=== PATIENT | male | born 1950 | race African-American/Black ===

== ENCOUNTER 2022-09-06 21:54 | Emergency (ER) | payer OTHER, MEDICAID ==
[~2022-09-06] VITALS: Ht 170.2 cm; Wt 79.6 kg
[2022-09-06] MEDS ORDERED: cloNIDine HCL 0.1 MG TAB PO ONE (22:30)
[2022-09-06 23:16] LABS: Basophils # (auto) 0.3 10 ^3/uL (0-0.2); Basophils % (auto) 2.6 % (0.0-2.0); Eosinophils # (auto) 0.2 10 ^3/uL (0-0.8); Eosinophils % (auto) 1.4 % (0.0-7.0); Hematocrit 50.7 % (41.0-53.0); Hemoglobin 16.6 g/dL (13.5-17.5); Lymphocytes # (auto) 1.2 10 ^3/uL (0.4-5.4); Lymphocytes % (auto) 9.5 % (10.0-50.0); Mean Corpuscular Hemoglobin 32.2 pg (28.0-32.0); Mean Corpuscular Hgb Conc. 32.8 g/dL (32.0-36.0); Mean Corpuscular Volume 98.1 fL (80.0-100.0); Monocytes # (auto) 0.6 10 ^3/uL (0-1.3); Monocytes % (auto) 4.6 % (0.0-12.0); Neutrophils # (auto) 10.6 10 ^3/uL (1.6-8.6); Neutrophils % (auto) 81.9 % (37.0-80.0); Nucleated Red Blood Cells % 0.1 %; Red Blood Cells 5.17 10^6/uL (4.5-5.90); Red Cell Distribution Width 13.5 % (11.8-14.3); White Blood Cell 12.9 10^3/uL (4.4-10.8)
[2022-09-06 23:39] LABS: Alanine Aminotransferase 30 U/L (16-61); Albumin 4.2 g/dL (3.4-5.0); Anion Gap 7 (5-15); Aspartate Aminotransferase 16 U/L (15-37); BUN/Creatinine Ratio 12.8; Blood Alcohol < 3.0 mg/dL (0-5); Blood Urea Nitrogen 12 mg/dL (7-18); Calcium 9.3 mg/dL (8.5-10.1); Carbon Dioxide 29 mmol/L (21-32); Chloride 102 mmol/L (98-107); GFR African American 102 mL/min; GFR Non-African American 84 mL/min; Glucose 109 mg/dL (74-106); Magnesium 2.3 mg/dL (1.6-2.6); Potassium 3.6 mmol/L (3.5-5.1); Sodium 138 mmol/L (136-145)
[2022-09-06 23:42] LABS: Alkaline Phosphatase 98 U/L (45-117); Bilirubin, Total 0.8 mg/dL (0.2-1.0); Total Protein 8.6 g/dL (6.4-8.2)
[2022-09-07] LABS: Amphetamine Screen, Urine NEGATIVE (NEGATIVE); Barbiturate Scree,Urine NEGATIVE (NEGATIVE); Benzodiazephine Screen, Urine NEGATIVE (NEGATIVE); Cannabinoid Screen, Urine NEGATIVE (NEGATIVE); Cocaine Screen, Urine NEGATIVE (NEGATIVE); Opiate Scree,Urine NEGATIVE (NEGATIVE); Phencyclidine Screen, Urine NEGATIVE (NEGATIVE)
[2022-09-07 03:08] VITALS: BP 176/90
[2022-09-07] MEDS ORDERED: AMOX-277 PO (03:16)
[2022-09-07] MEDS ORDERED: LORA-622 PO (03:16)
== END 2022-09-07 03:31 | disposition home or self-care (01) ==
LOC: ER 21:54
DX: J32.9 Chronic sinusitis, unspecified (principal); G45.9 Transient cerebral ischemic attack, unspecified; I10 Essential (primary) hypertension; Z20.822 Contact with and (suspected) exposure to COVID-19; Z03.89 Encounter for observation for other suspected diseases and conditions ruled out
CPT/HCPCS: 36415; 70450; 80053; 80307; 80320; 82962; 83735; 83880; 84484; 85025; 87040; 87426; 87804; 93005

== ENCOUNTER 2025-04-11 13:47 | Inpatient (IN) | payer OTHER, MEDICAID ==
[~2025-04-11] VITALS: Ht 170.2 cm; Wt 89.7 kg
[~2025-04-11 13:47] MED LIST: AMOX875T4 PO; LORA-622 PO
--- NOTE | 2025-04-11 14:47 | ED.PDOC ---
General HPI Comments This is a 74 year old male presenting to the ED with chief complaint of urinary issues. Patient reports that he was seen at urgent care yesterday for inability to void, being prescribed Tamsulosin and Ciprofloxacin with mild relief noted with the Tamsulosin. Patient relays that he has not been using the antibiotics due to side effects listed. Patient states that he is continuing to have urgency, however, it is difficult for him to urinate on his own. Patient notes he started to experience right flank pain with associate suprapubic abdominal pain, constipation, and redness to his bilateral legs which is not normal. Denies fevers, chills, night sweats, nausea/vomiting Denies penile discharge Chief Complaint: Urinary Time Seen by MD: 14:43 Primary Care Provider: DR. HANCOCK Reviewed notes: Nurses Notes, Medications, Allergies Allergies: Coded Allergies: NO KNOWN ALLERGIES (Unverified , 06/11/12) Home Meds Active Scripts Tamsulosin Hcl (Flomax) 0.4 Mg Cap, 0.4 MG PO QPM for 30 Days, #30 CAP Prov:BAILEY LOPEZ RESIDENT 04/13/25 Finasteride (Finasteride) 5 Mg Tab, 5 MG PO DAILY for 30 Days, #30 TAB Prov:BAILEY LOPEZ RESIDENT 04/13/25 Loratadine (Claritin) 10 Mg Tab, 1 TAB PO DAILY for 10 Days, #10 TAB 2 Refills Prov:SANJIV AMIN DO 09/07/22 Amoxicillin & Pot Clavulanate (Amoxicillin/Potassium Cla) 875 Mg Tab, 875 MG PO BID for 10 Days, #20 TAB Prov:SANJIV AMIN DO 09/07/22 Information Source: Patient Mode of Arrival: Ambulatory Severity: Moderate Inability to void: Moderate Timing: Days Duration: Since onset Prehospital treatment: None Onset: Spontaneous Symptoms: Urgency, Inability to void Location: (R) Flank associated signs and symptoms: Abdominal Pain, Flank Pain, Urgency, Inability to Void, Rash Past Medical History PAST MEDICAL HISTORY: HTN Surgical History: Denies all surgeries Family History Family History: Unknown Social History Smoker: Non-Smoker Alcohol: Occasionally Drugs: Denies Drug Use Lives In: Home Constitutional: denies: chills, diaphoresis, fatigue, fever, malaise, sweats, weakness, others EENTM: denies: blurred vision, double vision, ear bleeding, ear discharge, ear drainage, ear pain, ear ringing, eye pain, eye redness, hearing loss, mouth trin[place] n, mouth swelling, nasal discharge, nose bleeding, nose congestion, nose pain, photophobia, tearing, throat pain, throat swelling, voice changes, others Respiratory: denies: cough, hemoptysis, orthopnea, SOB at rest, shortness of breath, SOB with excertion, stridor, wheezing, others Cardiovascular: denies: chest pain, dizzy spells, diaphoresis, Dyspnea on exertion, edema, irregular heart beat, left arm pain, lightheadedness, palpitations, PND, syncope, others Gastrointestinal: reports: abdominal pain, constipated; denies: abdomen distended, blood streaked bowels, diarrhea, dysphagia, difficulty swallowing, hematemesis, melena, nausea, poor appetite, poor fluid intake, rectal bleeding, rectal pain, vomiting, others Genitourinary: reports: flank pain, others (Inability to void); denies: burning, dysuria, frequency, hematuria, incontinence, penile discharge, penile sore, pain, testicle pain, testicle swelling, urgency Neurological: denies: dizziness, fainting, headache, left sided numbness, left sided weakness, numbness, paresthesia, pre-existing deficit, right sided numbn ess, right sided weakness, seizure, speech problems, tingling, tremors, weakness, others Musculoskeletal: denies: back pain, gout, joint pain, joint swelling, muscle pain, muscle stiffness, neck pain, others Integumetry: reports: change in color (Bilateral leg redness); denies: bruises, change in hair/nails, dryness, laceration, lesions, lumps, rash, wounds, others Allergic/Immunocompromised: denies: Difficulty Healing, Frequent Infections, Hives, Itching, others Hematologic/Lymphatic: denies: anemia, blood clots, easy bleeding, easy bruising, swollen glands, others Endocrine: denies: excessive hunger, excessive sweating, excessive thirst, excessive urination, flushing, intolerance to cold, intolerance to heat, unexplained weight gain, unexplained weight loss, others Psychiatric: denies: anxiety, bipolar disorder, depression, hopeless, panic disorder, schizophrenia, sleepless, suicidal, others All Other Systems: Reviewed and Negative Physical Exam General Appearance: No Apparent Distress, Normal HEENT: Normal ENT Inspection, Pharynx Normal, TMs Normal Neck: Full Range of Motion, Non-Tender, Normal, Normal Inspection Respiratory: Chest Non-Tender, Lungs Clear, No Accessory Muscle Use, No Respiratory Distress, Normal Breath Sounds Cardiovascular: No Edema, No JVD, No Murmur, No Gallop, Normal Peripheral Pulses, Regular Rate/Rhythm Breast Exam: Deferred Gastrointestinal: No Organomegaly, Normal Bowel Sounds, Tenderness Genitalia: Deferred Pelvic: Deferred Rectal: Deferred Extremities: No calf tenderness, Normal capillary refill, Normal inspection, Normal range of motion, Non-tender, No pedal edema Musculoskeletal : Apperance: Normal Neurologic: Alert, studio sales associate II-XII nml as Tested, No Motor Deficits, Normal Affect, Normal Mood, No Sensory Deficits Cerebellar Function: Normal Reflexes: Normal Skin: Dry, Normal Color, Warm Lymphatic: No Adenopathy Was a procedure done? Was a procedure done?: No Differential Diagnosis Kidney stone (Female): Other, N/A Urinary Problem (Male): Bladder Obstruction, Epididymitis, Prostatitis, Renal Failure, Urinary Retention, Urolithiasis, UTI X-Ray, Labs, Meds, VS Vital Signs Date Time Temp Pulse Resp B/P (MAP) Pulse Ox O2 Delivery O2 Flow Rate FiO2 04/11/25 13:49 98.7 114 15 164/88 97 98.7 Lab Test 04/11/25 17:50 04/11/25 16:02 04/11/25 14:56 04/11/25 14:54 Range/Units Troponin I High Sensitivity 31 29 28 </=54 ng/L Sodium Level 135 L 135 L 136-145 mmol/L Potassium Level 4.0 4.1 3.5-5.1 mmol/L Chloride Level 99 99 98-107 mmol/L Carbon Dioxide Level 25 23 20-31 mmol/L Anion Gap 11 13 5-15 Blood Urea Nitrogen 30 H 31 H 9-23 mg/dL Creatinine 4.41 H 5.24 H 0.700-1.30 mg/dL Glomerular Filtration Rate Calc 13 11 >90 mL/min BUN/Creatinine Ratio 6.8 L 5.9 L 10.0-20.0 Serum Glucose 107 H 121 H 74-106 mg/dL Lactic Acid Level 1.6 0.4-2.0 mmol/L Calcium Level 9.6 9.4 8.7-10.4 mg/dL Total Bilirubin 1.3 H 0.2-1.0 mg/dL Aspartate Amino Transferase (AST) 37 13-40 U/L Alanine Aminotransferase (ALT) 22 7-40 U/L Alkaline Phosphatase 80 46-116 U/L C-Reactive Protein High Sensitivity 7.95 H <1.0 mg/dL Total Protein 8.7 H 5.7-8.2 g/dL Albumin 4.9 H 3.2-4.8 g/dL Urine Color Yellow Yellow Urine Clarity Clear Clear Urine pH 5.5 5.0-9.0 Urine Specific [place] 1.015 1.001-1.035 Urine Protein Negative Negative Urine Ketones Negative Negative Urine Blood 3+ H Negative /uL Urine Nitrite Negative Negative Urine Bilirubin Negative Negative Urine Urobilinogen Normal Negative mg/dL Urine Leukocyte Esterase Negative Negative /uL Urine RBC 63 0 - 3 /hpf Urine Microscopic WBC 39 H 0-3 /HPF Urine Squamous Epithelial Cells Few <5 /hpf Urine Bacteria None seen None Seen /hpf Urine Glucose Normal Normal mg/dL White Blood Count 22.4 H 4.4-10.8 10^3/uL Red Blood Count 4.69 4.5-5.90 10^6/uL Hemoglobin 15.7 13.5-17.5 g/dL Hematocrit 46.1 41.0-53.0 % Mean Corpuscular Volume 98.3 80.0-100.0 fL Mean Corpuscular Hemoglobin 33.4 H 28.0-32.0 pg Mean Corpuscular Hemoglobin Concent 34.0 32.0-36.0 g/dL Red Cell Distribution Width 13.1 11.8-14.3 % Platelet Count 242 140-450 10^3/uL Mean Platelet Volume 7.5 6.9-10.8 fL Neutrophils (%) (Auto) 89.5 H 37.0-80.0 % Lymphocytes (%) (Auto) 2.5 L 10.0-50.0 % Monocytes (%) (Auto) 7.5 0.0-12.0 % Eosinophils (%) (Auto) 0.2 0.0-7.0 % Basophils (%) (Auto) 0.3 0.0-2.0 % Neutrophils # (Auto) 20.1 H 1.6-8.6 10 ^3/uL Lymphocytes # (Auto) 0.6 0.4-5.4 10 ^3/uL Monocytes # (Auto) 1.7 H 0-1.3 10 ^3/uL Eosinophils # (Auto) 0 0-0.8 10 ^3/uL Basophils # (Auto) 0.1 0-0.2 10 ^3/uL Nucleated Red Blood Cells 0.1 % Erythrocyte Sedimentation Rate 18 0-20 mm/hr Microbiology Date/Time Source Procedure Growth Status 04/11/25 16:02 Blood Blood Culture - Final NO GROWTH AFTER 5 DAYS OF INCUBATION. Complete 04/11/25 15:50 Blood Blood Culture - Final NO GROWTH AFTER 5 DAYS OF INCUBATION. Complete X-Ray, Labs, Meds, VS Comment This is a 74 year old male presenting to the ED with chief complaint of Difficulty urinating Patient arrives alert and oriented, ABC's intact, afebrile, vital signs stable, saturating well in room air Peripheral IV insertion+ labs were ordered. CBC was ordered to exclude anemia, blood loss, or infection. BMP was ordered to exclude electrolyte abnormalities, renal failure, dehydration, hyperglycemia Urinalysis was ordered to rule out UTI or hematuria. Diagnostic imaging ordered by me and results interpreted by radiology : CT Abd/Pel Time of 1ST Reevaluation: 15:00 Reevaluation 1ST: Unchanged Patient Education/Counseling: Diagnosis, Treatment Family Education/Counseling: No Family Present SEPSIS Sepsis Screen Date sepsis recognized/suspect: Apr 11, 2025 Time Sepsis recognized/suspect: 1351 Recent Procedure: No On Antibiotic Therapy: No Respiratory Rate >20: No Heart Rate >90: Yes Temp<36 C (96.8 F) or >38.3 C: No SBP <90 or MAP <65 mmHG: No New Acute Mental Status Change: No Is the patient on CPAP, BIPAP,: No Physician Orders Chst Ab Pel Wo Con-No Iv/Oral (04/11/25 15:37) Electrocardigram (04/11/25 15:56) Notify Md If Map <65 Or Bp<90 (04/11/25 15:58) If Map<65 Start Vasopressor (04/11/25 15:58) *Dr. Tila Layton -Da Lizbeth (04/11/25 17:46) Code Status (04/11/25 17:46) Oxygen Per Hour (04/11/25 17:46) Vital Signs Date Time Temp Pulse Resp B/P (MAP) Pulse Ox O2 Delivery O2 Flow Rate FiO2 04/11/25 13:49 98.7 114 15 164/88 97 98.7 Laboratory Tests Test 04/11/25 14:54 04/11/25 16:02 White Blood Count 22.4 10^3/uL (4.4-10.8) H Lactic Acid Level 1.6 mmol/L (0.4-2.0) Departure 1 Departure Time of Disposition: 15:56 Impression: Primary Impression: Urinary retention Additional Impressions: Stage 3 acute kidney injury Abdominal pain Qualified Codes: R10.84 - Generalized abdominal pain UTI (urinary tract infection) Qualified Codes: N30.01 - Acute cystitis with hematuria Disposition: ADMITTED INPATIENT Condition: Serious e-Prescriptions Tamsulosin Hcl (Flomax) 0.4 Mg Cap 0.4 MG PO QPM for 30 Days, #30 CAP Prov: BAILEY LOPEZ RESIDENT 04/13/25 Finasteride (Finasteride) 5 Mg Tab 5 MG PO DAILY for 30 Days, #30 TAB Prov: BAILEY LOPEZ RESIDENT 04/13/25 Critical Care Note Critical Care Time?: No Stability Stability form required: No Heart Score Heart Score: Heart Score Response (Comments) Value History N/A 0 EKG N/A 0 Age N/A 0 Risk Factors N/A 0 Troponin N/A 0 Total 0 I personally scribed for LISA DRAKE NP ([email or web address]) on 04/11/25 at 14:47. Electronically submitted by Candelario Velez ([email or web address]). I personally scribed for LISA DRAKE NP ([email or web address]) on 04/11/25 at 15:38. Electronically submitted by Candelario Velez ([email or web address]). LISA DRAKE NP Apr 11, 2025 14:47
[2025-04-11 15:09] LABS: Hematocrit 46.1 % (41.0-53.0); Hemoglobin 15.7 g/dL (13.5-17.5); Mean Corpuscular Hemoglobin 33.4 pg (28.0-32.0); Mean Corpuscular Volume 98.3 fL (80.0-100.0); Nucleated Red Blood Cells % 0.1 %
[2025-04-11 15:12] LABS: Chloride 99 mmol/L (98-107); Potassium 4.1 mmol/L (3.5-5.1)
[2025-04-11 15:13] LABS: Anion Gap 13 (5-15); Calcium 9.4 mg/dL (8.7-10.4); Carbon Dioxide 23 mmol/L (20-31)
[2025-04-11 15:14] LABS: Urine Protein, UAD Negative (Negative)
[2025-04-11 15:16] LABS: Sodium 135 mmol/L (136-145)
[2025-04-11 15:18] LABS: BUN/Creatinine Ratio 5.9 (10.0-20.0)
[2025-04-11 15:25] LABS: Blood Urea Nitrogen 31 mg/dL (9-23); Glucose 121 mg/dL (74-106)
[2025-04-11 16:38] LABS: Alanine Aminotransferase 22 U/L (7-40); Albumin 4.9 g/dL (3.2-4.8); Alkaline Phosphatase 80 U/L (46-116); Anion Gap 11 (5-15); BUN/Creatinine Ratio 6.8 (10.0-20.0); Blood Urea Nitrogen 30 mg/dL (9-23); Calcium 9.6 mg/dL (8.7-10.4); Carbon Dioxide 25 mmol/L (20-31); Chloride 99 mmol/L (98-107); Glucose 107 mg/dL (74-106); Potassium 4.0 mmol/L (3.5-5.1); Sodium 135 mmol/L (136-145); Total Protein 8.7 g/dL (5.7-8.2)
--- NOTE | 2025-04-11 16:38 | DVH ---
Procedure: CT CHST AB PEL WO CON-NO IV/ORAL Study Date and Requested Time : 04/11/2025 03:44 PM History: Ab pain Comparison: None Dose: CTDI: 14.14 mGy DLP: 4.61 mGycm Technique: Multiplanar images obtained through the abdomen and pelvis Multiplanar images obtained thr ough the abdomen and pelvis Findings: Chest: The thyroid gland is unremarkable. Heart size is within normal limits. Trace pericardial effusion. No evidence of aortic aneurysm. The pulmonary trunk is normal in size. No significant mediastinal lymphadenopathy. No pneumothorax, pleural effusion or focal airspace consolidation. Soft tissues are unremarkable. No evidence of acute osseous abnormalities. Abdomen and pelvis: Liver, spleen, gallbladder, pancreas unremarkable. Mild hypoplasia of the adrenal glands with no foca l nodules. Odac-tz-peiwfblu bilateral perinephric and periureteral fat stranding with mild Bilateral Hydronephro sis. No obstructing calculus is noted. Punctate nonobstructing left renal calculus. Focus of calcifi cation within the right hemipelvis abutting the prostate which appears to represent prostatic calcifi cation/phleboliths. Urinary bladder is decompressed with Gallardo catheter in place.. Air within the uri nary bladder which is most likely iatrogenic. There is mild fat stranding adjacent to the urinary mj dder. Prostate is significantly enlarged measuring 7 by 7 by 7.9 cm. Mild gastric wall thickening. Mild wall Thickening of proximal small bowel loops. The remainder of th e small bowel loops unremarkable. Appendix is not definitely visualized. Without visualization of the appendix, can not exclude acute appendicitis. There is irregularly shaped fluid density within the c ecum which may represent Liquid stool. Small to moderate Amount of fecal material within the colon. M ild rectal wall thickening which may be due to inadequate distention. No evidence of intraperitoneal free air or free fluid. Noevidence of aortic aneurysm. [id number] atherosclerotic calcification of the aorta. No significant lymphadenopathy. Small right with small to moderate left-sided fat containing inguinal hernias. Small fat containing umbilical hernia with mild fat stranding within the hernia which may represent m ild strangulation. Soft tissues otherwise unremarkable. No evidence of acute osseous abnormalities. Impression: Significantly enlarged prostate. Recommend correlation with PSA. Urinary bladder is decompressed gallardo catheter in place. Fat stranding adjacent to the urinary bladd er. Recommend correlation with urinalysis for possible cystitis. Mild bilateral Hydronephrosis with Hcch-wy-rgefjcoz bilateral perinephric and periureteral fat strand ing. No obstructing calculus is noted. Correlate for possible infectious process. Mild wall thickening of the stomach and proximal small bowel which may be due to inadequate distentio n with mild gastritis not excluded. Noevidence of acute intrathoracic abnormalities. Additional findings as above.
[2025-04-11 16:39] LABS: Bilirubin, Total 1.3 mg/dL (0.2-1.0)
[2025-04-11] MEDS ORDERED: ONDANSETRON HCL 4 MG/2 ML VIAL IV PRN (18:00)
[2025-04-11] MEDS ORDERED: HYDROcodone-ACET 5/325MG TAB PO PRN (18:00)
[2025-04-11] MEDS ORDERED: ACETAMINOPHEN 325 MG TAB PO PRN (18:00)
[2025-04-11] MEDS ORDERED: hydrALAZINE HCL 20 MG/ML VL IV PRN (18:00)
[2025-04-11] MEDS: SODIUM CHLORIDE 0.9% 1,000 ML IV SCH (18:00)
[2025-04-11] MEDS: TAMSULOSIN HYDROCHLORIDE 0.4 MG CAP PO ONE (18:06)
[2025-04-11] MEDS: cefTRIAXone 2GM/50ML D5W 50 ML IV ONE (18:12)
--- NOTE | 2025-04-11 18:27 | DVHHP2 ---
History of Present Illness Reason for Visit: Acute renal failure History of Present Illness The patient is a 74-year-old male with past medical history of hypertension presented to [facility] ED with complaint of difficulty urinating associated with urinary urgency, right flank pain, suprapubic abdominal pain, constipation, and redness of his bilateral legs. Patient reports that he was seen at urgent care yesterday for inability to void and was prescribed Tamsulosin and Ciprofloxacin with mild relief. Patient states that he has not been using the antibiotics due to side effects listed. Patient was seen and evaluated in the ED, laboratory data shows elevated WBC 22.4, platelets 242, sodium 135, potassium 4.0, BUN 30, creatinine 4.41, GFR 13, glucose 107, calcium 9.6, troponin 28, total bilirubin 1.3, C-reactive protein 7.95, protein 8.7, albumin 4.9, ESR 18, blood pressure 164/88, heart rate 1 one four, temperature 98.7 F, O2 saturation 97% on room air. Chest/abdomen/pelvis CT revealing enlarged prostate, urinary bladder is decompressed Gallardo catheter in place, fat stranding adjacent to the urinary bladder, mild bilateral hydronephrosis with mild to moderate bilateral perinephric and periureteral fat stranding, no obstructing calculus is noted. Patient was started on IV antibiotic regimen Zosyn, please see medication orders section in the computer. On my assessment, patient denied chest pain, no headache, no dizziness, no diaphoresis, no short ness of breaths, no diarrhea, no nausea, no vomiting, no fever, no chills. Patient was admitted for further evaluation and medical management. Past Medical History Hypertension, BPH Past Surgical History Denies all surgeries Family History Reviewed, noncontributory to the management of this case. Past Social History The patient lives at home, denies smoking, alcohol or illicit drugs abuse. Review of Systems Constitutional: Yes: Weakness; No: Fever, Chills, Sweats, Malaise, Other Eyes: No: Pain, Vision change, Conjunctivae inflammation, Eyelid inflammation, Other, Redness ENT: No: Ear pain, Ear discharge, Nose pain, Nose discharge, Nose congestion, Mouth pain, Mouth swelling, Throat pain, Throat swelling, Other Respiratory: No: Cough, Dry, Shortness of breath, SOB with excertion, Wheezing, Hemoptysis, Pleuritic Pain, Sputum, Wheezing, Other Cardiovascular: No: Chest Pain, Palpitations, Orthopnea, Paroxysmal Noc. Dyspnea, Edema, Lt Headedness, Other Gastrointestinal: Abdominal Pain, Constipation; No: Nausea, Vomiting, Diarrhea, Melena, Hematochezia, Other Genitourinary: No Dysuria, No Frequency, No Incontinence, No Hematuria, No Retention; Other (Inability to void) Musculoskeletal: No: other, neck pain, shoulder pain, arm pain, back pain, hand pain, leg pain, foot pain Skin: No: Rash, Lesions, Jaundice, Bruising, Other Neurological: No: Weakness, Numbness, Incoordination, Change in speech, C onfusion, Seizures, Other Allergies: Coded Allergies: NO KNOWN ALLERGIES (Unverified , 06/11/12) Medications Current Medications Medications Dose Ordered Sig/Chelo Route Start Time Stop Time Status Last Admin Dose Admin Amlodipine Besylate 5 mg DAILY PO 04/12/25 10:00 Hydralazine HCl 10 mg Q6HP PRN IV 04/11/25 18:00 Piperacillin Sod/ Tazobactam Sod 100 ml @ 25 mls/hr Q8HR IV 04/11/25 22:00 Metoprolol Tartrate 25 mg BID PO 04/11/25 22:00 Tamsulosin HCl 0.4 mg QPM PO 04/12/25 18:00 Sodium Chloride 1,000 ml @ 60 mls/hr [id number] IV 04/11/25 18:00 Acetaminophen/ Hydrocodone Bitart 1 tab Q4HP PRN PO 04/11/25 18:00 Ondansetron HCl 4 mg Q4HP PRN IV 04/11/25 18:00 Docusate Sodium 100 mg BIDPRN PRN PO 04/11/25 18:00 Acetaminophen 650 mg Q6HP PRN PO 04/11/25 18:00 Exam Vital Signs Vital Signs Date Time Temp Pulse Resp B/P (MAP) Pulse Ox O2 Delivery O2 Flow Rate FiO2 04/11/25 13:49 98.7 114 15 164/88 97 98.7 General Appearance: Alert, Oriented X3, Cooperative, No acute distress HEENT: Atraumatic, PERRLA, EOMI, Mucous membr. moist/pink Respiratory: Normal air movement Cardiovascular: Regular rate, Normal S1, Normal S2, No murmurs Abdominal: Normal bowel sounds, Soft, No tenderness, No masses, Other (Reports tenderness) Extremities: No clubbing, No cyanosis, No edema, Normal pulses, No tenderness/swelling Skin: No breakdown, No significant lesion Neuro: Normal speech, Normal tone, Sensation intact, Cranial nerves 3-12 NL, Reflexes 2+, Other (Generalized weakness) Psych/Mental Status: Mental status NL, Mood NL Labs/Xrays Labs Test 04/11/25 17:50 04/11/25 16:02 04/11/25 14:56 04/11/25 14:54 Range/Units Sodium Level 135 L 136-145 mmol/L Potassium Level 4.0 3.5-5.1 mmol/L Chloride Level 99 98-107 mmol/L Carbon Dioxide Level 25 20-31 mmol/L Anion Gap 11 5-15 Blood Urea Nitrogen 30 H 9-23 mg/dL Creatinine 4.41 H 0.700-1.30 mg/dL Glomerular Filtration Rate Calc 13 >90 mL/min BUN/Creatinine Ratio 6.8 L 10.0-20.0 Serum Glucose 107 H 74-106 mg/dL Lactic Acid Level 1.6 0.4-2.0 mmol/L Calcium Level 9.6 8.7-10.4 mg/dL Total Bilirubin 1.3 H 0.2-1.0 mg/dL Aspartate Amino Transferase (AST) 37 13-40 U/L Alanine Aminotransferase (ALT) 22 7-40 U/L Alkaline Phosphatase 80 46-116 U/L C-Reactive Protein High Sensitivity 7.95 H <1.0 mg/dL Total Protein 8.7 H 5.7-8.2 g/dL Albumin 4.9 H 3.2-4.8 g/dL Urine Color Yellow Yellow Urine Clarity Clear Clear Urine pH 5.5 5.0-9.0 Urine Specific [place] 1.015 1.001-1.035 Urine Protein Negative Negative Urine Ketones Negative Negative Urine Blood 3+ H Negative /uL Urine Nitrite Negative Negative Urine Bilirubin Negative Negative Urine Urobilinogen Normal Negative mg/dL Urine Leukocyte Esterase Negative Negative /uL Urine RBC 63 0 - 3 /hpf Urine Microscopic WBC 39 H 0-3 /HPF Urine Squamous Epithelial Cells Few <5 /hpf Urine Bacteria None seen None Seen /hpf Urine Glucose Normal Normal mg/dL White Blood Count 22.4 H 4.4-10.8 10^3/uL Red Blood Count 4.69 4.5-5.90 10^6/uL Hemoglobin 15.7 13.5-17.5 g/dL Hematocrit 46.1 41.0-53.0 % Mean Corpuscular Volume 98.3 80.0-100.0 fL Mean Corpuscular Hemoglobin 33.4 H 28.0-32.0 pg Mean Corpuscular Hemoglobin Concent 34.0 32.0-36.0 g/dL Red Cell Distribution Width 13.1 11.8-14.3 % Platelet Count 242 140-450 10^3/uL Mean Platelet Volume 7.5 6.9-10.8 fL Neutrophils (%) (Auto) 89.5 H 37.0-80.0 % Lymphocytes (%) (Auto) 2.5 L 10.0-50.0 % Monocytes (%) (Auto) 7.5 0.0-12.0 % Eosinophils (%) (Auto) 0.2 0.0-7.0 % Basophils (%) (Auto) 0.3 0.0-2.0 % Neutrophils # (Auto) 20.1 H 1.6-8.6 10 ^3/uL Lymphocytes # (Auto) 0.6 0.4-5.4 10 ^3/uL Monocytes # (Auto) 1.7 H 0-1.3 10 ^3/uL Eosinophils # (Auto) 0 0-0.8 10 ^3/uL Basophils # (Auto) 0.1 0-0.2 10 ^3/uL Nucleated Red Blood Cells 0.1 % Erythrocyte Sedimentation Rate 18 0-20 mm/hr PATIENT: AVELINO CHRISTIAN ACCT: [id number] UNIT: [id number] : 1950 LOC: ER ROOM / BED: / AGE / SEX: 74 / M ADM STATUS: REG ER SERVICE 1537 ORDERING PHYSICIAN: LISA DRAKE NP PROCEDURE(s): CTCAP - CHST AB PEL WO CON-NO IV/ORAL REASON: Ab pain ORDER NUMBER(s): [id number], ACCESSION NUMBER(s): [id number] Procedure: CT CHST AB PEL WO CON-NO IV/ORAL Study Date and Requested Time: 04/11/2025 03:44 PM History: Ab pain Comparison: None Dose: CTDI: 14.14 mGy DLP: 4.61 mGycm Technique: Multiplanar images obtained through the abdomen and pelvis Multiplanar images obtained through the abdomen and pelvis Findings: Chest: The thyroid gland is unremarkable. Heart size is within normal limits. Trace pericardial effusion. No evidence of aortic aneurysm. The pulmonary trunk is normal in size. No significant mediastinal lymphadenopathy. No pneumothorax, pleural effusion or focal airspace consolidation. Soft tissues are unremarkable. No evidence of acute osseous abnormalities. Abdomen and pelvis: Liver, spleen, gallbladder, pancreas unremarkable. Mild hypoplasia of the adrenal glands with no focal nodules. Icwt-ty-fpawzwfj bilateral perinephric and periureteral fat stranding with mild Bilateral Hydronephrosis. No obstructing calculus is noted. Punctate nonobstructing left renal calculus. Focus of calcification within the right hemipelvis abutting the prostate which appears to represent prostatic calcification/phleboliths. Urinary bladder is decompressed with Gallardo catheter in place.. Air within the urinary bladder which is most likely iatrogenic. There is mild fat stranding adjacent to the urinary bladder. Prostate is significantly enlarged measuring 7 by 7 by 7.9 cm. Mild gastric wall thickening. Mild wall Thickening of proximal small bowel loo ps. The remainder of the small bowel loops unremarkable. Appendix is not definitely visualized. Without visualization of the appendix, can not exclude acute appendicitis. There is irregularly shaped fluid density within the cecum which may represent Liquid stool. Small to moderate Amount of fecal material within the colon. Mild rectal wall thickening which may be due to inadequate distention. No evidence of intraperitoneal free air or free fluid. Noevidence of aortic aneurysm. Wvha-px-xyjiwnla atherosclerotic calcification of the aorta. No significant lymphadenopathy. Small right with small to moderate left-sided fat containing inguinal hernias. Small fat containing umbilical hernia with mild fat stranding within the hernia which may represent mild strangulation. Soft tissues otherwise unremarkable. No evidence of acute osseous abnormalities. Impression: Significantly enlarged prostate. Recommend correlation with PSA. Urinary bladder is decompressed gallardo catheter in place. Fat stranding adjacent to the urinary bladder. Recommend correlation with urinalysis for possible cystitis. Mild bilateral Hydronephrosis with [id number] bilateral perinephric and periureteral fat stranding. No obstructing calculus is noted. Correlate for possible infectious process. Mild wall thickening of the stomach and proximal small bowel which may be due to inadequate distention with mild gastritis not excluded. Noevidence of acute intrathoracic abnormalities. Additional findings as above. SEPSIS Sepsis Screen Date sepsis recognized/suspect: Apr 11, 2025 Time Sepsis recognized/suspect: 1351 Recent Procedure: No On Antibiotic Therapy: No Respiratory Rate >20: No Heart Rate >90: Yes Temp<36 C (96.8 F) or >38.3 C: No SBP <90 or MAP <65 mmHG: No New Acute Mental Status Change: No Is the patient on CPAP, BIPAP,: No Physician Orders Insert Gallardo Catheter QSHIFT (04/11/25 14:41) Chst Ab Pel Wo Con-No Iv/Oral (04/11/25 15:37) Blood Culture (04/11/25 15:46) Electrocardigram (04/11/25 15:56) Troponin-I Hs (04/11/25 18:56) Notify Md If Map <65 Or Bp<90 (04/11/25 15:58) If Map<65 Start Vasopressor (04/11/25 15:58) Amlodipine Tablet (Norvasc Tablet) (04/12/25 10:00) Hydralazine Injection (Apresoline Inject (04/11/25 18:00) Piperacillin-Tazob 3.375gm (Zosyn 3.375g (04/11/25 22:00) *Dr. Tila Layton -Da Lizbeth (04/11/25 17:46) Metoprolol Tartrate Tablet (Lopressor Ta (04/11/25 22:00) Allergies (04/11/25 17:46) Code Status (04/11/25 17:46) Sodium Chloride 0.9% (04/11/25 18:00) Oxygen Per Hour (04/11/25 17:46) Hydrocodone-Acet 5/325mg Tab ([place] 5/32 (04/11/25 18:00) Ondansetron Hcl (Zofran) (04/11/25 18:00) Docusate Sodium Capsule (Colace Capsule) (04/11/25 18:00) Complete Blood Count (04/12/25 04:00) Comprehensive Metabolic Panel (04/12/25 04:00) Cardiac Diet-2gna,Lofat,Lochol (04/11/25 Dinner) Condition: Serious (04/11/25 17:46) Acetaminophen Tablet (Tylenol Tablet) (04/11/25 18:00) Bedrest With Bathroom Privileg (04/11/25 17:46) Sequential Compression Device (04/11/25 ) Tamsulosin Hydrochloride (Flomax) (04/12/25 18:00) Vital Signs Date Time Temp Pulse Resp B/P (MAP) Pulse Ox O2 Delivery O2 Flow Rate FiO2 04/11/25 13:49 98.7 114 15 164/88 97 98.7 Laboratory Tests Test 04/11/25 14:54 04/11/25 16:02 White Blood Count 22.4 10^3/uL (4.4-10.8) H Lactic Acid Level 1.6 mmol/L (0.4-2.0) Medications Medications Dose Ordered Sig/Chelo Route Start Time Stop Time Status Last Admin Dose Admin Ceftriaxone Sodium/Dextrose 50 ml @ 50 mls/hr ONCE ONCE IV 04/11/25 16:00 04/11/25 16:59 DC 04/11/25 18:12 50 MLS/HR Tamsulosin HCl 0.4 mg ONCE ONCE PO 04/11/25 18:00 04/11/25 18:01 DC 04/11/25 18:06 0.4 MG Assessment/Plan Assessment/Plan Acute renal failure Urinary retention Hydronephrosis Stage 3 acute kidney injury Abdominal pain Leukocytosis, unspecified Generalized abdominal pain UTI (urinary tract infection) Acute cystitis with hematuria Generalized weakness BPH (benign prostatic hyperplasia) Systemic inflammatory response syndrome (SIRS) Plan 1. Admit to telemetry unit 2. Breathing treatment 3. Pain control management 4. IV antibiotic management 5. Management of fluids and electrolytes 6. Consultation for hospitalist/nephrology 7. Diagnostic test chest/abdomen/pelvis CT 8. DVT prophylaxis on SCDs 9. Repeat labs CBC, CMP in a.m. 10. Home medication reviewed and reconciled 11. Continue with current medical management 12. Treatment plan discussed with patient and RN. Patient verbalized understanding. Plan discussed with: Patient, Other (RN) My Orders Orders - JOSE ARMANDO ORTEGA DNP Procedure Category Date Status Time Amlodipine Tablet PHA 04/12/25 In Process (Norvasc Tablet) 10:00 Hydralazine Injection PHA 04/11/25 In Process (Apresoline Inject 18:00 Piperacillin-Tazob PHA 04/11/25 In Process 3.375gm (Zosyn 3.375g 22:00 *Dr. Tila Layton -Da CONS 04/11/25 Transmitted Libzeth 17:46 Metoprolol Tartrate PHA 04/11/25 In Process Tablet (Lopressor Ta 22:00 Allergies NICKY 04/11/25 In Process 17:46 Code Status CODE 04/11/25 Transmitted 17:46 Sodium Chloride 0.9% PHA 04/11/25 In Process 18:00 Oxygen Per Hour RT 04/11/25 Transmitted 17:46 Hydrocodone-Acet PHA 04/11/25 In Process 5/325mg Tab ([place] 18:00 Ondansetron Hcl PHA 04/11/25 In Process (Zofran) 18:00 Docusate Sodium PHA 04/11/25 In Process Capsule (Colace 18:00 Complete Blood Count LAB 04/12/25 Verified 04:00 Comprehensive LAB 04/12/25 Verified Metabolic Panel 04:00 Cardiac DIET 04/11/25 Transmitted Diet-2gna,Lofat,Lochol Dinner Condition: Serious NICKY 04/11/25 In Process 17:46 Acetaminophen Tablet PHA 04/11/25 In Process (Tylenol Tablet) 18:00 Bedrest With Bathroom NICKY 04/11/25 In Process Privileg 17:46 Sequential NICKY 04/11/25 In Process Compression Device Tamsulosin PHA 04/12/25 In Process Hydrochloride (Flomax) 18:00 Problem List: (1) Acute renal failure (2) Urinary retention (3) Abdominal pain (4) Stage 3 acute kidney injury (5) Generalized abdominal pain (6) Hydronephrosis (7) UTI (urinary tract infection) (8) Acute cystitis with hematuria (9) Generalized weakness (10) BPH (benign prostatic hyperplasia) (11) Leukocytosis, unspecified (12) Systemic inflammatory response syndrome (SIRS) Date of Service: Apr 11, 2025 Billing Provider: JOSE ARMANDO ORTEGA DNP Common Visit Codes: 46083-VYHVQCI INP/OBS CARE (HIGH) JOSE ARMANDO ORTEGA DNP Apr 11, 2025 18:27
[2025-04-11] MEDS ORDERED: MORPHINE SULFATE INJ 2 MG/ml SYRG IV PRN (18:30)
[2025-04-11] MEDS ORDERED: NITROGLYCERIN 0.4 MG SL TAB SL PRN (18:30)
[2025-04-11] MEDS ORDERED: VANCOMYCIN PER PHARMACY 0 MG IV SCH (21:15)
[2025-04-11 23:15] VITALS: BP 158/84; PULSE 74; PULSE 76; RESP 17; TEMP 97.9; O2SAT 95; O2SAT 98
[2025-04-12] VITALS (7 sets, daily range): BP systolic 130–147; BP diastolic 71–90; PULSE 70–86; RESP 17–18; TEMP 97.6–98.7; O2SAT 94–99
[2025-04-12] MEDS: METOPROLOL TARTRATE 25 MG TAB PO SCH (00:10)
[2025-04-12] MEDS: PIPERACILLIN-TAZOB 3.375GM 100 ML IV SCH (00:10)
[2025-04-12 07:07] LABS: Hematocrit 42.2 % (41.0-53.0); Hemoglobin 14.1 g/dL (13.5-17.5); Mean Corpuscular Hemoglobin 32.7 pg (28.0-32.0); Mean Corpuscular Volume 97.9 fL (80.0-100.0); Nucleated Red Blood Cells % 0.0 %
[2025-04-12 07:28] LABS: Alanine Aminotransferase 16 U/L (7-40); Alkaline Phosphatase 61 U/L (46-116); Anion Gap 10 (5-15); BUN/Creatinine Ratio 11.8 (10.0-20.0); Blood Urea Nitrogen 20 mg/dL (9-23); Calcium 8.9 mg/dL (8.7-10.4); Carbon Dioxide 25 mmol/L (20-31); Chloride 102 mmol/L (98-107); Glucose 104 mg/dL (74-106); Potassium 3.6 mmol/L (3.5-5.1); Sodium 137 mmol/L (136-145); Total Protein 7.1 g/dL (5.7-8.2)
[2025-04-12 07:29] LABS: Albumin 4.0 g/dL (3.2-4.8); Bilirubin, Total 1.1 mg/dL (0.2-1.0)
[2025-04-12] MEDS: FINASTERIDE 5 MG TAB PO ONE (11:36)
--- NOTE | 2025-04-12 12:08 | DVHINCON2 ---
Date of service: Apr 12, 2025 Referring Physician hospitalist Reason for Consultation urinary retention History of Present Illness History Source: Patient, RN Notes, MD Notes, Old Records Exam Limitations: No limitations HPI 74 yo male with BPH and urinary retention. Gallardo placed in ER, 1100 mls out immediately. Home Meds Active Scripts Loratadine (Claritin) 10 Mg Tab, 1 TAB PO DAILY for 10 Days, #10 TAB 2 Refills Prov:SANJIV AMIN S DO 09/07/22 Amoxicillin & Pot Clavulanate (Amoxicillin/Potassium Cla) 875 Mg Tab, 875 MG PO BID for 10 Days, #20 TAB Prov:SANJIV AMIN S DO 09/07/22 Past Medical History Renal/: Benign prostatic enlarg., CKD Patient Family History: Patient reports no known family medical history. Smoker: No Hx (Negative) Alocohol: None Drugs: None Domestic Violence: Neg Review of Systems Constitutional: No symptom reported Ears, Nose, & Throat: No symptom reported Eyes: No symptom reported Pulmonary/Respiratory: No symptom reported Cardiovascular: No symptom reported Gastrointestinal: Abdominal Pain Genitourinary: Retention Musculoskeletal: No symptom reported Skin: No symptom reported Psychiatric: No symptom reported Endocrine: No symptom reported Hemotologic/Lymphatic: No symptom reported H&P Exam Vital Signs Vital Signs Date Time Temp Pulse Resp B/P (MAP) Pulse Ox O2 Delivery O2 Flow Rate FiO2 04/12/25 09:45 77 135/71 04/12/25 09:00 98.6 17 97 98.6 04/12/25 08:00 Room Air* 0 21 General Appeara: Well developed, Well nourished, Normal Appearance Pulmonary/Respiratory: Normal inspection, Normal breath sounds, Chest non- tender, Lungs clear Cardiovascular/Chest: Normal inspection, Regular rate, Normal Rhythm Abdominal Exam: Normal bowel sounds, Soft, No tenderness, No hepatospenomegaly, No masses Motor/Sensory: Normal sensory function, Normal motor function, Negative Babinski's sign Neuro/Mental St: Alert, Oriented Appearance: Appropriate appearance, Appropriate insight Eye contact/ Speech: Cooperative, Good eye contact, Normal speech Skin Exam: Normal inspection, Normal color, Warm/dry Labs/Xrays [address] [address] Ph: [phone] DIAGNOSTIC IMAGING Diagnostic Imaging Report : [id number] Signed PATIENT: AVELINO CHRISTIAN ACCT: [id number] UNIT: [id number] : 1950 LOC: ER ROOM / BED: / AGE / SEX: 74 / M ADM STATUS: REG ER SERVICE 1537 ORDERING PHYSICIAN: LISA DRAKE NP PROCEDURE(s): CTCAP - CHST AB PEL WO CON-NO IV/ORAL REASON: Ab pain ORDER NUMBER(s): [id number], ACCESSION NUMBER(s): [id number] Procedure: CT CHST AB PEL WO CON-NO IV/ORAL Study Date and Requested Time: 04/11/2025 03:44 PM History: Ab pain Comparison: None Dose: CTDI: 14.14 mGy DLP: 4.61 mGycm Technique: Multiplanar images obtained through the abdomen and pelvis Multiplanar images obtained through the abdomen and pelvis Findings: Chest: The thyroid gland is unremarkable. Heart size is within normal limits. Trace pericardial effusion. No evidence of aortic aneurysm. The pulmonary trunk is normal in size. No significant mediastinal lymphadenopathy. No pneumothorax, pleural effusion or focal airspace consolidation. Soft tissues are unremarkable. No evidence of acute osseous abnormalities. Abdomen and pelvis: Liver, spleen, gallbladder, pancreas unremarkable. Mild hypoplasia of the adrenal glands with no focal nodules. Wrse-uc-xdcbxmyz bilateral perinephric and periureteral fat stranding with mild Bilateral Hydronephrosis. No obstructing calculus is noted. Punctate nonobstructing left renal calculus. Focus of calcification within the right hemipelvis abutting the prostate which appears to represent prostatic calcification/phleboliths. Urinary bladder is decompressed with Gallardo catheter in place.. Air within the urinary bladder which is most likely iatrogenic. There is mild fat stranding adjacent to the urinary bladder. Prostate is significantly enlarged measuring 7 by 7 by 7.9 cm. Mild gastric wall thickening. Mild wall Thickening of proximal small bowel loops. The remainder of the small bowel loops unremarkable. Appendix is not definitely visualized. Without visualization of the appendix, can not exclude acute appendicitis. There is irregularly shaped fluid density within the cecum which may represent Liquid stool. Small to moderate Amount of fecal material within the colon. Mild rectal wall thickening which may be due to inadequate distention. No evidence of intraperitoneal free air or free fluid. Noevidence of aortic aneurysm. Wfoj-an-mcibrgqg atherosclerotic calcification of the aorta. No significant lymphadenopathy. Small right with small to moderate left-sided fat containing inguinal hernias. Small fat containing umbilical hernia with mild fat stranding within the hernia which may represent mild strangulation. Soft tissues otherwise unremarkable. No evidence of acute osseous abnormalities. Impression: Significantly enlarged prostate. Recommend correlation with PSA. Urinary bladder is decompressed gallardo catheter in place. Fat stranding adjacent to the urinary bladder. Recommend correlation with urinalysis for possible cystitis. Mild bilateral Hydronephrosis with Vyae-jn-eyscspya bilateral perinephric and periureteral fat stranding. No obstructing calculus is noted. Correlate for possible infectious process. Mild wall thickening of the stomach and proximal small bowel which may be due to inadequate distention with mild gastritis not excluded. Noevidence of acute intrathoracic abnormalities. Additional findings as above. ATED BY: BESSY BACON DO DICTATED DATE/TIME: 04/11/25 163 SIGNED BY: BESSY BACON DO SIGNED DATE/TIME: 04/11/25 163 CC: Labs Test 04/12/25 06:09 04/11/25 17:50 04/11/25 16:02 04/11/25 14:56 Range/Units White Blood Count 14.0 #H 4.4-10.8 10^3/uL Red Blood Count 4.31 L 4.5-5.90 10^6/uL Hemoglobin 14.1 13.5-17.5 g/dL Hematocrit 42.2 41.0-53.0 % Mean Corpuscular Volume 97.9 80.0-100.0 fL Mean Corpuscular Hemoglobin 32.7 H 28.0-32.0 pg Mean Corpuscular Hemoglobin Concent 33.4 32.0-36.0 g/dL Red Cell Distribution Width 12.9 11.8-14.3 % Platelet Count 238 140-450 10^3/uL Mean Platelet Volume 8.1 6.9-10.8 fL Neutrophils (%) (Auto) 81.9 H 37.0-80.0 % Lymphocytes (%) (Auto) 7.6 L 10.0-50.0 % Monocytes (%) (Auto) 7.8 0.0-12.0 % Eosinophils (%) (Auto) 2.5 0.0-7.0 % Basophils (%) (Auto) 0.2 0.0-2.0 % Neutrophils # (Auto) 11.4 H 1.6-8.6 10 ^3/uL Lymphocytes # (Auto) 1.1 0.4-5.4 10 ^3/uL Monocytes # (Auto) 1.1 0-1.3 10 ^3/uL Eosinophils # (Auto) 0.3 0-0.8 10 ^3/uL Basophils # (Auto) 0 0-0.2 10 ^3/uL Nucleated Red Blood Cells 0.0 % Sodium Level 137 136-145 mmol/L Potassium Level 3.6 3.5-5.1 mmol/L Chloride Level 102 98-107 mmol/L Carbon Dioxide Level 25 20-31 mmol/L Anion Gap 10 5-15 Blood Urea Nitrogen 20 # 9-23 mg/dL Creatinine 1.69 #H 0.700-1.30 mg/dL Glomerular Filtration Rate Calc 42 >90 mL/min BUN/Creatinine Ratio 11.8 10.0-20.0 Serum Glucose 104 74-106 mg/dL Calcium Level 8.9 8.7-10.4 mg/dL Total Bilirubin 1.1 H 0.2-1.0 mg/dL Aspartate Amino Transferase (AST) 28 13-40 U/L Alanine Aminotransferase (ALT) 16 7-40 U/L Alkaline Phosphatase 61 46-116 U/L Total Protein 7.1 5.7-8.2 g/dL Albumin 4.0 3.2-4.8 g/dL Random Vancomycin Level 18.6 H 5-10 ug/mL Troponin I High Sensitivity 31 </=54 ng/L Lactic Acid Level 1.6 0.4-2.0 mmol/L C-Reactive Protein High Sensitivity 7.95 H <1.0 mg/dL Urine Color Yellow Yellow Urine Clarity Clear Clear Urine pH 5.5 5.0-9.0 Urine Specific [place] 1.015 1.001-1.035 Urine Protein Negative Negative Urine Ketones Negative Negative Urine Blood 3+ H Negative /uL Urine Nitrite Negative Negative Urine Bilirubin Negative Negative Urine Urobilinogen Normal Negative mg/dL Urine Leukocyte Esterase Negative Negative /uL Urine RBC 63 0 - 3 /hpf Urine Microscopic WBC 39 H 0-3 /HPF Urine Squamous Epithelial Cells Few <5 /hpf Urine Bacteria None seen None Seen /hpf Urine Glucose Normal Normal mg/dL Test 04/11/25 14:54 Range/Units Erythrocyte Sedimentation Rate 18 0-20 mm/hr Assessment/Plan Problem List: (1) BPH (benign prostatic hyperplasia) (2) Urinary retention (3) Stage 3 acute kidney injury Plan keep gallardo outpt cystoscopy and urodynamics aquablation candidate Plan discussed with: Patient, Other ANTHONY HARRIS NP Apr 12, 2025 12:08
--- NOTE | 2025-04-12 14:14 | DVHPNRES ---
Progress Note Date Seen: Apr 12, 2025 Resident Creating Document: ARPAN DYKES RESIDENT Medical Necessity Reason Pt with a Central, PICC or Fol: Yes Reason for gallardo catheter: Bladder Retention/Obstruc Subjective Review of Systems Patient is a 74-year-old male with prior medical history of hypertension, who presented to the ED with chief complaint of inability to urinate associated with intense abdominal pain. According to the patient, he woke up on Friday morning with intense abdominal pain described as stabbing, concentrated in suprapubic region, 10/10 intensity, associated with inability to urinate, febrile sensation, and decreased appetite. Patient states he sought care at [facility] urgent care where he was prescribed Flomax and antibiotics, however he states he did not take the antibiotics. Due to persistence of pain and lack of urination, He was advised by his doctor to seek medical attention in the emergency room. On evaluation in the ED, patient was tachycardic, hypertensive, and had tenderness to palpation of the abdomen. Initial labs so WBCs 22.4, lactic acid 1.6,sodium 135, potassium 4.1, creatinine 5.24, and BUN 31. per the patient, an ultrasound was performed which showed a bladder volume of 1100cc, however there is no documentation of this, and a Gallardo was subsequently placed. Abdominal CT shows a significantly enlarged prostate, urinary bladder is decompressed Gallardo catheter in place, fat stranding adjacent to the urinary bladder, mild bilateral hydronephrosis with mild to moderate bilateral perinephric and periureteral fat stranding, no obstructing calculus is noted. Patient was started on IV Zosyn and pain regimen, and he was admitted for further workup and monitoring. Personal history: Hypertension Allergies: Denies Surgical: Denies Social: Denies alcohol, tobacco, and illicit drug use. Patient states he lives with his son and a roommate and feels safe. Patient seen at bedside. He states feels better, the abdominal pain has completely resolved, denies recent febrile sensation. Currently denies fever, nausea, vomiting, current abdominal pain, history of frequency/ urgency/ difficulty initiating stream/ slow urinary flow, palpitations, and chest pain. no adverse events overnight. His vitals have been stable. follow up labs WBCs 14 and chemical panel showing improved renal function with BUN of 20 and creatinine 1.69. Patient was seen by Urology who recommended the patient keep the Gallardo, recommend outpatient and urodynamics. We will continue with current management, possible discharge tomorrow. Review of Systems: Constitutional: Denies weight loss, fever and chills. HEENT: Denies changes in vision and hearing. Respiratory: Denies shortness of breath and cough Cardiovascular: Denies chest discomfort or palpitations GI: Denies abdominal distention, abdominal pain, diarrhea : Denies dysuria and urinary frequency. Musculoskeletal: Denies symptoms Skin: Denies rash and pruritus. Neurological: denies dizziness headache vision or hearing problems Objective vital signs Vital Sign Date Time Temp Pulse Resp B/P (MAP) Pulse Ox O2 Delivery O2 Flow Rate FiO2 04/12/25 09:45 77 135/71 04/12/25 09:00 98.6 17 97 98.6 04/12/25 08:00 Room Air* 0 21 Total Intake and Output 04/11/25 04/11/25 04/12/25 15:00 23:00 07:00 Intake Total 700 ml Output Total 900 ml Balance -200 ml medications Current Medications Medications Dose Ordered Sig/Chelo Route Start Time Stop Time Status Last Admin Dose Admin Amlodipine Besylate 5 mg DAILY PO 04/12/25 10:00 Metoprolol Tartrate 25 mg BID PO 04/11/25 22:00 04/12/25 09:45 25 MG Tamsulosin HCl 0.4 mg QPM PO 04/12/25 18:00 Sodium Chloride 1,000 ml @ 60 mls/hr [id number] IV 04/11/25 18:00 04/12/25 12:49 60 MLS/HR Acetaminophen/ Hydrocodone Bitart 1 tab Q4HP PRN PO 04/11/25 18:00 Ondansetron HCl 4 mg Q4HP PRN IV 04/11/25 18:00 Docusate Sodium 100 mg BIDPRN PRN PO 04/11/25 18:00 Acetaminophen 650 mg Q6HP PRN PO 04/11/25 18:00 Vancomycin HCl 0 ml @ 0 mls/hr UD IV 04/11/25 21:15 Ceftriaxone Sodium 50 ml @ 100 mls/hr DAILY@09 IV 04/13/25 09:00 Finasteride 5 mg DAILY PO 04/13/25 10:00 Examination General: The patient seems comfortable, alert and oriented in person place and time. Patient following commands HEENT: Normocephalic, atraumatic, normal reactive pupils, EOM intact, pink conjunctiva, pink moist mucous membrane Respiratory/pulmonary: Bilateral chest expansion, Clear lungs bilaterally, vesicular murmurs present in almost all lung murillo, no associated crackles or wheezes. Cardiovascular: normal RRR, normal S1 and S2 Abdomen: Abdomen nondistended, normal bowel sounds, soft, no pain to palpation in any of the abdominal quadrants, no palpable masses. : There is the presence of a Gallardo catheter draining clear urine Extremities: no deformities, there is no peripheral edema present at the lower extremities, Pulses are palpable Skin: No rashes or pruritus Neurological: Intact cranial nerves with no focal neurologic deficit laboratory and microbiology Laboratory Tests 04/12/25 06:09 Test 04/12/25 06:09 Range/Units Serum Glucose 104 74-106 mg/dL Problem List/Assessment/Plan Problem List/Assessment/Plan Assessment and Plan HARMONY due to obstructive uropathy - IV fluids - Monitor renal function - Avoid nephrotoxic drugs Intractable abdominal pain due to Acute urinary retention due to BPH - Urology: Keep Gallardo, outpatient cystoscopy and urodynamics, aquablation candidate - Gallardo catheter in - Flomax 0.4 mg q.a.m. p.o. - [place] 5 mg p.o. Q 4 PRN -Acetaminophen 650 mg p.o. q.6 hours p.r.n. - abdominal CT: Significantly enlarged prostate. - pending PSA Acute cystitis with hematuria - Zosyn, discontinued - Rocephin 1 g IV daily started - Vancomycin IV per pharmacy protocol Bilateral hydronephrosis - Abdominal CT: Mild bilateral hydronephrosis with mild to moderate bilateral perinephric and periureteral fat stranding. Hyponatremia, resolved Hypertension - Patient states that at home he does not take any medications, he controls his blood pressure by eating beets - Amlodipine 5 mg p.o. daily, was prescribed however the patient is refusing medication - metoprolol 25 mg p.o. b.i.d. DVT prophylaxis: Not indicated GI prophylaxis: Not indicated Case discussed with Dr. Tavera Goals of care discussed with the patient for 25 minutes. FULL CODE. Plan discussed with: Patient My Orders My Orders Orders - ARPAN DYKES Procedure Category Date Status Time Hemoglobin A1c LAB 04/12/25 Logged 14:05 Basic Metabolic Panel LAB 04/13/25 Verified 04:00 Date of Service: Apr 12, 2025 Billing Provider: DENICE TAVERA MD Common Visit Codes: [id number] INP/OBS CARE(HIGH) Secondary Visit Codes: [id number] CARE PLAN 30 MINUTES DONISARPAN RESIDENT Apr 12, 2025 14:14 DENICE TAVERA MD Apr 15, 2025 21:12
--- NOTE | 2025-04-12 17:08 | DVHINCON2 ---
Date of service: Apr 12, 2025 Referring Physician Mishel Forte Reason for Consultation HARMONY History of Present Illness 74 Y/O M with history of CKD , BPH presented with difficulty urinating and flank pain. Downing placed in ER immediately drained 1.1 L. labs significant for creatinine of 5.24 mg/dl, which has improved to 1.69 mg/dl in 24 hours. IVF has also been started. UA neg for LE, nitrite and WBC. Nephrology consulted for HARMONY Past Medical History BPH Allergies: Coded Allergies: NO KNOWN ALLERGIES (Unverified , 06/11/12) Home Meds Active Scripts Loratadine (Claritin) 10 Mg Tab, 1 TAB PO DAILY for 10 Days, #10 TAB 2 Refills Prov:SANJIV AMIN DO 09/07/22 Amoxicillin & Pot Clavulanate (Amoxicillin/Potassium Cla) 875 Mg Tab, 875 MG PO BID for 10 Days, #20 TAB Prov:SANJIV AMIN DO 09/07/22 Current Medications Current Medications Medications (Trade) Dose Ordered Sig/Chelo Route PRN Reason Start Time Stop Time Status Last Admin Amlodipine Besylate (Norvasc Tablet) 5 mg DAILY PO 04/12/25 10:00 Hydralazine HCl (Apresoline Injection) 10 mg Q6HP PRN IV SBP>150 04/11/25 18:00 04/12/25 10:13 DC Piperacillin Sod/ Tazobactam Sod 100 ml @ 25 mls/hr Q8HR IV 04/11/25 22:00 04/12/25 10:55 DC 04/12/25 06:19 Metoprolol Tartrate (Lopressor Tablet) 25 mg BID PO 04/11/25 22:00 04/12/25 09:45 Tamsulosin HCl (Flomax) 0.4 mg QPM PO 04/12/25 18:00 Sodium Chloride 1,000 ml @ 60 mls/hr [id number] IV 04/11/25 18:00 04/12/25 12:49 Acetaminophen/ Hydrocodone Bitart (Omro 5/325MG Tab) 1 tab Q4HP PRN PO MODERATE PAIN (4-6 PAIN SCALE) 04/11/25 18:00 Ondansetron HCl (Zofran) 4 mg Q4HP PRN IV NAUSEA / VOMITING 04/11/25 18:00 Docusate Sodium (Colace Capsule) 100 mg BIDPRN PRN PO FOR CONSTIPATION 04/11/25 18:00 Acetaminophen (Tylenol Tablet) 650 mg Q6HP PRN PO PAIN SCALE 1-3 OR TEMP>100.4 04/11/25 18:00 Nitroglycerin (Ntrostat Sublingual) 0.4 mg Q5MINP PRN SL FOR CHEST PAIN 04/11/25 18:30 04/12/25 10:11 DC Morphine Sulfate 2 mg Q30M PRN IV FOR CHEST PAIN 04/11/25 18:30 04/12/25 10:11 DC Vancomycin HCl 0 ml @ 0 mls/hr UD IV 04/11/25 21:15 Ceftriaxone Sodium 50 ml @ 100 mls/hr DAILY@09 IV 04/13/25 09:00 Finasteride (Proscar Tablet) 5 mg DAILY PO 04/13/25 10:00 Family History: Patient reports no known family medical history. Review of Systems as per HPI, all ohter Systems were reviewed and are negative H&P Exam Vital Signs/I&O Vital Sign Date Time Temp Pulse Resp B/P (MAP) Pulse Ox O2 Delivery O2 Flow Rate FiO2 04/12/25 10:45 63 128/80 04/12/25 09:00 98.6 17 97 98.6 04/12/25 08:00 Room Air* 0 21 Intake and Output 04/11/25 04/12/25 19:00 07:00 Intake Total 700 ml Output Total 900 ml Balance -200 ml Intake Oral 300 ml IV Total 400 ml Output Urine Total 900 ml Physical Exam Gen: NAD, AAOx3 HEENT: NC, AT Lungs: CTA b/l Cardiac: RRR Abd: soft, no distention Ext: no edema Neuro: no focal deficits Labs/Diagnostic Data Labs/Diagnostic Data Laboratory Tests Test 04/12/25 06:09 04/11/25 17:50 04/11/25 16:02 04/11/25 14:56 Range/Units White Blood Count 14.0 #H 4.4-10.8 10^3/uL Red Blood Count 4.31 L 4.5-5.90 10^6/uL Hemoglobin 14.1 13.5-17.5 g/dL Hematocrit 42.2 41.0-53.0 % Mean Corpuscular Volume 97.9 80.0-100.0 fL Mean Corpuscular Hemoglobin 32.7 H 28.0-32.0 pg Mean Corpuscular Hemoglobin Concent 33.4 32.0-36.0 g/dL Red Cell Distribution Width 12.9 11.8-14.3 % Platelet Count 238 140-450 10^3/uL Mean Platelet Volume 8.1 6.9-10.8 fL Neutrophils (%) (Auto) 81.9 H 37.0-80.0 % Lymphocytes (%) (Auto) 7.6 L 10.0-50.0 % Monocytes (%) (Auto) 7.8 0.0-12.0 % Eosinophils (%) (Auto) 2.5 0.0-7.0 % Basophils (%) (Auto) 0.2 0.0-2.0 % Neutrophils # (Auto) 11.4 H 1.6-8.6 10 ^3/uL Lymphocytes # (Auto) 1.1 0.4-5.4 10 ^3/uL Monocytes # (Auto) 1.1 0-1.3 10 ^3/uL Eosinophils # (Auto) 0.3 0-0.8 10 ^3/uL Basophils # (Auto) 0 0-0.2 10 ^3/uL Nucleated Red Blood Cells 0.0 % Sodium Level 137 135 L 136-145 mmol/L Potassium Level 3.6 4.0 3.5-5.1 mmol/L Chloride Level 102 99 98-107 mmol/L Carbon Dioxide Level 25 25 20-31 mmol/L Anion Gap 10 11 5-15 Blood Urea Nitrogen 20 # 30 H 9-23 mg/dL Creatinine 1.69 #H 4.41 H 0.700-1.30 mg/dL Glomerular Filtration Rate Calc 42 13 >90 mL/min BUN/Creatinine Ratio 11.8 6.8 L 10.0-20.0 Serum Glucose 104 107 H 74-106 mg/dL Hemoglobin A1c 4.6 <5.7 % A1C Calcium Level 8.9 9.6 8.7-10.4 mg/dL Total Bilirubin 1.1 H 1.3 H 0.2-1.0 mg/dL Aspartate Amino Transferase (AST) 28 37 13-40 U/L Alanine Aminotransferase (ALT) 16 22 7-40 U/L Alkaline Phosphatase 61 80 46-116 U/L Total Protein 7.1 8.7 H 5.7-8.2 g/dL Albumin 4.0 4.9 H 3.2-4.8 g/dL Random Vancomycin Level 18.6 H 5-10 ug/mL Troponin I High Sensitivity 31 29 </=54 ng/L Lactic Acid Level 1.6 0.4-2.0 mmol/L C-Reactive Protein High Sensitivity 7.95 H <1.0 mg/dL Urine Color Yellow Yellow Urine Clarity Clear Clear Urine pH 5.5 5.0-9.0 Urine Specific [place] 1.015 1.001-1.035 Urine Protein Negative Negative Urine Ketones Negative Negative Urine Blood 3+ H Negative /uL Urine Nitrite Negative Negative Urine Bilirubin Negative Negative Urine Urobilinogen Normal Negative mg/dL Urine Leukocyte Esterase Negative Negative /uL Urine RBC 63 0 - 3 /hpf Urine Microscopic WBC 39 H 0-3 /HPF Urine Squamous Epithelial Cells Few <5 /hpf Urine Bacteria None seen None Seen /hpf Urine Glucose Normal Normal mg/dL Test 04/11/25 14:54 Range/Units White Blood Count 22.4 H 4.4-10.8 10^3/uL Red Blood Count 4.69 4.5-5.90 10^6/uL Hemoglobin 15.7 13.5-17.5 g/dL Hematocrit 46.1 41.0-53.0 % Mean Corpuscular Volume 98.3 80.0-100.0 fL Mean Corpuscular Hemoglobin 33.4 H 28.0-32.0 pg Mean Corpuscular Hemoglobin Concent 34.0 32.0-36.0 g/dL Red Cell Distribution Width 13.1 11.8-14.3 % Platelet Count 242 140-450 10^3/uL Mean Platelet Volume 7.5 6.9-10.8 fL Neutrophils (%) (Auto) 89.5 H 37.0-80.0 % Lymphocytes (%) (Auto) 2.5 L 10.0-50.0 % Monocytes (%) (Auto) 7.5 0.0-12.0 % Eosinophils (%) (Auto) 0.2 0.0-7.0 % Basophils (%) (Auto) 0.3 0.0-2.0 % Neutrophils # (Auto) 20.1 H 1.6-8.6 10 ^3/uL Lymphocytes # (Auto) 0.6 0.4-5.4 10 ^3/uL Monocytes # (Auto) 1.7 H 0-1.3 10 ^3/uL Eosinophils # (Auto) 0 0-0.8 10 ^3/uL Basophils # (Auto) 0.1 0-0.2 10 ^3/uL Nucleated Red Blood Cells 0.1 % Erythrocyte Sedimentation Rate 18 0-20 mm/hr Sodium Level 135 L 136-145 mmol/L Potassium Level 4.1 3.5-5.1 mmol/L Chloride Level 99 98-107 mmol/L Carbon Dioxide Level 23 20-31 mmol/L Anion Gap 13 5-15 Blood Urea Nitrogen 31 H 9-23 mg/dL Creatinine 5.24 H 0.700-1.30 mg/dL Glomerular Filtration Rate Calc 11 >90 mL/min BUN/Creatinine Ratio 5.9 L 10.0-20.0 Serum Glucose 121 H 74-106 mg/dL Calcium Level 9.4 8.7-10.4 mg/dL Troponin I High Sensitivity 28 </=54 ng/L Assessment Assessment: HARMONY secondary to obstructive uropathy CKD likely stage II BPH Plan: Continue normal saline daily BMP Urology consult appreciated Continue Flomax and Finasteride Strict I&Os Plan discussed with: Patient BRIEN FRANCO MD Apr 12, 2025 17:08
[2025-04-12] MEDS: DOCUSATE SOD 100 MG CAP PO PRN (17:40)
[2025-04-12] MEDS: TAMSULOSIN HYDROCHLORIDE 0.4 MG CAP PO SCH (17:41)
[2025-04-13 01:00] VITALS: BP 138/81; PULSE 68; RESP 18; TEMP 98.7; O2SAT 97
[2025-04-13 05:00] VITALS: BP 142/78; PULSE 72; RESP 18; TEMP 98.2; O2SAT 98
[2025-04-13 08:07] LABS: Prostate Specific Antigen 269.0 ng/mL (0.0-4.0)
[2025-04-13 08:53] LABS: Hematocrit 40.5 % (41.0-53.0); Hemoglobin 13.9 g/dL (13.5-17.5); Mean Corpuscular Hemoglobin 33.5 pg (28.0-32.0); Mean Corpuscular Volume 97.8 fL (80.0-100.0); Nucleated Red Blood Cells % 0.0 %
[2025-04-13 08:57] LABS: Chloride 103 mmol/L (98-107); Potassium 3.7 mmol/L (3.5-5.1); Sodium 140 mmol/L (136-145)
[2025-04-13 08:58] LABS: Anion Gap 11 (5-15); Calcium 8.6 mg/dL (8.7-10.4); Carbon Dioxide 26 mmol/L (20-31)
[2025-04-13 09:03] LABS: BUN/Creatinine Ratio 16.3 (10.0-20.0); Blood Urea Nitrogen 17 mg/dL (9-23); Glucose 88 mg/dL (74-106)
[2025-04-13 09:34] VITALS: BP 137/62; PULSE 77; RESP 17; TEMP 98.9; O2SAT 95
[2025-04-13] MEDS: cefTRIAXone 1GM/50ML D5W 50 ML IV SCH (10:35)
[2025-04-13] MEDS: FINASTERIDE 5 MG TAB PO SCH (10:35)
[2025-04-13] MEDS: POLYETHYLENE GLYCOL 17 GM PWDR PO ONE (10:35)
[2025-04-13] MEDS ORDERED: FIN5T PO (10:42)
[2025-04-13] MEDS ORDERED: TAMS-35 PO (10:42)
[2025-04-13 12:30] VITALS: BP 149/80; PULSE 74; RESP 17; TEMP 98.3; O2SAT 97
--- NOTE | 2025-04-13 13:59 | DVHDSRES ---
Discharge Summary Date of Admission Resident Creating Document: ARPAN DYKES RESIDENT Apr 11, 2025 at 18:25 Date of Discharge: Apr 13, 2025 Admitting Diagnosis Acute abdominal pain Labs/Diagnostic Data: Laboratory Results Test 04/13/25 07:40 04/12/25 06:09 04/11/25 17:50 04/11/25 16:02 White Blood Count 11.8 10^3/uL (4.4-10.8) Red Blood Count 4.14 10^6/uL (4.5-5.90) Hemoglobin 13.9 g/dL (13.5-17.5) Hematocrit 40.5 % (41.0-53.0) Mean Corpuscular Volume 97.8 fL (80.0-100.0) Mean Corpuscular Hemoglobin 33.5 pg (28.0-32.0) Mean Corpuscular Hemoglobin Concent 34.3 g/dL (32.0-36.0) Red Cell Distribution Width 12.4 % (11.8-14.3) Platelet Count 223 10^3/uL (140-450) Mean Platelet Volume 7.8 fL (6.9-10.8) Neutrophils (%) (Auto) 78.4 % (37.0-80.0) Lymphocytes (%) (Auto) 8.4 % (10.0-50.0) Monocytes (%) (Auto) 10.0 % (0.0-12.0) Eosinophils (%) (Auto) 3.0 % (0.0-7.0) Basophils (%) (Auto) 0.2 % (0.0-2.0) Neutrophils # (Auto) 9.2 10 ^3/uL (1.6-8.6) Lymphocytes # (Auto) 1.0 10 ^3/uL (0.4-5.4) Monocytes # (Auto) 1.2 10 ^3/uL (0-1.3) Eosinophils # (Auto) 0.3 10 ^3/uL (0-0.8) Basophils # (Auto) 0 10 ^3/uL (0-0.2) Nucleated Red Blood Cells 0.0 % Sodium Level 140 mmol/L (136-145) Potassium Level 3.7 mmol/L (3.5-5.1) Chloride Level 103 mmol/L (98-107) Carbon Dioxide Level 26 mmol/L (20-31) Anion Gap 11 (5-15) Blood Urea Nitrogen 17 mg/dL (9-23) Creatinine 1.04 mg/dL (0.700-1.30) Glomerular Filtration Rate Calc 76 mL/min (>90) BUN/Creatinine Ratio 16.3 (10.0-20.0) Serum Glucose 88 mg/dL (74-106) Calcium Level 8.6 mg/dL (8.7-10.4) Random Vancomycin Level 3.0 ug/mL (5-10) Hemoglobin A1c 4.6 % A1C (<5.7) Total Bilirubin 1.1 mg/dL (0.2-1.0) Aspartate Amino Transferase (AST) 28 U/L (13-40) Alanine Aminotransferase (ALT) 16 U/L (7-40) Alkaline Phosphatase 61 U/L (46-116) Total Protein 7.1 g/dL (5.7-8.2) Albumin 4.0 g/dL (3.2-4.8) Free Prostate Specific Antigen 9.68 ng/mL (N/A) Percent Free Prostate Specific Ag 3.6 % (.) Prostate Specific Antigen Total 269.0 ng/mL (0.0-4.0) Troponin I High Sensitivity 31 ng/L (</=54) Lactic Acid Level 1.6 mmol/L (0.4-2.0) C-Reactive Protein High Sensitivity 7.95 mg/dL (<1.0) Test 04/11/25 14:56 04/11/25 14:54 Urine Color Yellow (Yellow) Urine Clarity Clear (Clear) Urine pH 5.5 (5.0-9.0) Urine Specific [place] 1.015 (1.001-1.035) Urine Protein Negative (Negative) Urine Ketones Negative (Negative) Urine Blood 3+ /uL (Negative) Urine Nitrite Negative (Negative) Urine Bilirubin Negative (Negative) Urine Urobilinogen Normal mg/dL (Negative) Urine Leukocyte Esterase Negative /uL (Negative) Urine RBC 63 /hpf (0 - 3) Urine Microscopic WBC 39 /HPF (0-3) Urine Squamous Epithelial Cells Few /hpf (<5) Urine Bacteria None seen /hpf (None Seen) Urine Glucose Normal mg/dL (Normal) Erythrocyte Sedimentation Rate 18 mm/hr (0-20) Other Laboratory Tests 04/13/25 07:40 Brief Hx & Hospital Course: Patient is a 74-year-old male with prior medical history of hypertension, who presented to the ED with chief complaint of inability to urinate associated with intense abdominal pain. According to the patient, he woke up on Friday morning with intense abdominal pain described as stabbing, concentrated in suprapubic region, 10/10 intensity, associated with inability to urinate, febrile sensation, and decreased appetite. Patient states he sought care at [facility] urgent care where he was prescribed Flomax and antibiotics, however he states he did not take the antibiotics. Due to persistence of pain and lack of urination, He was advised by his doctor to seek medical attention in the emergency room. On evaluation in the ED, patient was tachycardic, hypertensive, and had tenderness to palpation of the abdomen. Initial labs so WBCs 22.4, lactic acid 1.6,sodium 135, potassium 4.1, creatinine 5.24, and BUN 31. per the patient, an ultrasound was performed which showed a bladder volume of 1100cc, however there is no documentation of this, and a Gallardo was subsequently placed. Abdominal CT shows a significantly enlarged prostate, urinary bladder is decompressed Gallardo catheter in place, fat stranding adjacent to the urinary bladder, mild bilateral hydronephrosis with mild to moderate bilateral perinephric and periureteral fat stranding, no obstructing calculus is noted. Patient was started on IV Zosyn and pain regimen, and he was admitted for further workup and monitoring. evaluation post admission, the patient stated he felt better, the abdominal pain had completely resolved, and denied further symptoms. Labs were significant for WBCs 14 and chemical penicillin improved renal function with BUN of 20 and creatinine of 1.69. The patient was seen by Urology recommended the patient keep the Gallardo, and recommended outpatient cystoscopy, urodynamics, and possible aquablation. Patient was evaluated by Nephrology who recommended continue IV fluids, Flomax, and finasteride. Patient has progressed favorably. On evaluation today, states he feels well, denies abdominal pain, bowel movements, febrile sensation, sharp pain, nausea, vomiting, palpitations, and other symptoms. Vitals have been stable. Follow-up labs are within normal range. The patient is considered stable for discharge home with Gallardo catheter, oral antibiotics, and finasteride. Patient is scheduled for a follow up appointment in the discharge clinic for further follow-up and monitoring. He will be seen by Urology outpatient for further workup. All medications and recommendations have been thoroughly explained to the patient. The importance of adherence to medical treatment has been emphasized. Patient states he understands and agrees. Personal history: Hypertension Allergies: Denies Surgical: Denies Social: Denies alcohol, tobacco, and illicit drug use. Patient states he lives with his son and a roommate and feels safe. Physical Exam: General: The patient seems comfortable, alert and oriented in person place and time. Patient following commands HEENT: Normocephalic, atraumatic, normal reactive pupils, EOM intact, pink conjunctiva, pink moist mucous membrane Respiratory/pulmonary: Bilateral chest expansion, Clear lungs bilaterally, vesicular murmurs present in almost all lung murillo, no associated crackles or wheezes. Cardiovascular: normal RRR, normal S1 and S2 Abdomen: Abdomen nondistended, normal bowel sounds, soft, no pain to palpation in any of the abdominal quadrants or suprapubic region, no palpable masses. : There is the presence of a Gallardo catheter draining clear urine Extremities: no deformities, there is no peripheral edema present at the lower extremities, pulses are palpable Skin: No rashes or pruritus Neurological: Intact cranial nerves with no focal neurologic deficits Case discussed with Dr. Tavera Goals of care discussed with the patient for over 25 minutes. Consults/Reason for consult Urology was consulted due to acute urinary retention Nephrology was consulted due to acute kidney injury in the setting of acute urinary retention Operations or Procedures Procedure: CT CHST AB PEL WO CON-NO IV/ORAL Study Date and Requested Time: 04/11/2025 03:44 PM History: Ab pain Comparison: None Dose: CTDI: 14.14 mGy DLP: 4.61 mGycm Technique: Multiplanar images obtained through the abdomen and pelvis Multiplanar images obtained through the abdomen and pelvis Findings: Chest: The thyroid gland is unremarkable. Heart size is within normal limits. Trace pericardial effusion. No evidence of aortic aneurysm. The pulmonary trunk is normal in size. No significant mediastinal lymphadenopathy. No pneumothorax, pleural effusion or focal airspace consolidation. Soft tissues are unremarkable. No evidence of acute osseous abnormalities. Abdomen and pelvis: Liver, spleen, gallbladder, pancreas unremarkable. Mild hypoplasia of the adrenal glands with no focal nodules. [id number] bilateral perinephric and periureteral fat stranding with mild Bilateral Hydronephrosis. No obstructing calculus is noted. Punctate nonobstructing left renal calculus. Focus of calcification within the right hemipelvis abutting the prostate which appears to represent prostatic calcification/phleboliths. Urinary bladder is decompressed with Gallardo catheter in place.. Air within the urinary bladder which is most likely iatrogenic. There is mild fat stranding adjacent to the urinary bladder. Prostate is significantly enlarged measuring 7 by 7 by 7.9 cm. Mild gastric wall thickening. Mild wall Thickening of proximal small bowel loops. The remainder of the small bowel loops unremarkable. Appendix is not definitely visualized. Without visualization of the appendix, can not exclude acute appendicitis. There is irregularly shaped fluid density within the cecum which may represent Liquid stool. Small to moderate Amount of fecal material within the colon. Mild rectal wall thickening which may be due to inadequate distention. No evidence of intraperitoneal free air or free fluid. Noevidence of aortic aneurysm. [id number] atherosclerotic calcification of the aorta. No significant lymphadenopathy. Small right with small to moderate left-sided fat containing inguinal hernias. Small fat containing umbilical hernia with mild fat stranding within the hernia which may represent mild strangulation. Soft tissues otherwise unremarkable. No evidence of acute osseous abnormalities. Impression: Significantly enlarged prostate. Recommend correlation with PSA. Urinary bladder is decompressed gallardo catheter in place. Fat stranding adjacent to the urinary bladder. Recommend correlation with urinalysis for possible cystitis. Mild bilateral Hydronephrosis with [id number] bilateral perinephric and periureteral fat stranding. No obstructing calculus is noted. Correlate for possible infectious process. Mild wall thickening of the stomach and proximal small bowel which may be due to inadequate distention with mild gastritis not excluded. Noevidence of acute intrathoracic abnormalities. Additional findings as above. Condition at Discharge: Stable Final Diagnosis/Problems List HARMONY due to obstructive uropathy Intractable abdominal pain due to Acute urinary retention due to BPH Acute cystitis with hematuria Bilateral hydronephrosis Hyponatremia, resolved Hypertension Discharge Disposition: Home Discharge Instruct/Medications Diet: Cardiac 2g Na,low cholest Activity: No Restrictions, As Tolerated Follow Up/Referral: Please follow up with urology Please follow up in dc clinic Medications: tamsulosin 0.4mg p.o. q.p.m. finasteride 5mg p.o. daily Augmentin 875 mg p.o. b.i.d. for 10 days Scheduled Amoxicillin & Pot Clavulanate (Amoxicillin/Potassium Cla), 875 MG PO BID Finasteride (Finasteride), 5 MG PO DAILY Loratadine (Claritin), 1 TAB PO DAILY Tamsulosin Hcl (Flomax), 0.4 MG PO QPM Discharge Statement: "Patient was advised to return to the ER or call 911 if any headaches, dizziness, shortness of breath, chest pain, abdominal pain, bleeding, fevers, or worsening of medical condition. Patient was counseled about treatment plan, medications, possible side effects, patientverbalized understanding. All questions were answered to the best of my ability. This discharge took greater then 30 minutes in planning, reviewing documentation, counseling the patient, and discussing with other team members." ASSESSMENT ASSESSMENT Assessment obstructive nephropathy Date of Service: Apr 13, 2025 Billing Provider: DENICE TAVERA MD Common Visit Codes: 74187-SMJ/OBS DISCH DAY >30min ARPAN DYKES RESIDENT Apr 13, 2025 13:59 DENICE TAVERA MD Apr 15, 2025 21:12
== END 2025-04-13 15:43 | disposition home or self-care (01) | DRG 726 ==
LOC: ER 13:47 → OVERFLOW 18:25 → TELE-WESTW 23:07
PROVIDERS: ADMIT Internal Medicine Geriatric Medicine; ATTEND Internal Medicine Geriatric Medicine
DX: N40.1 Benign prostatic hyperplasia with lower urinary tract symptoms (principal); N17.9 Acute kidney failure, unspecified; N13.6 Pyonephrosis; R65.10 Systemic inflammatory response syndrome (SIRS) of non-infectious origin without acute organ dysfunction; N13.8 Other obstructive and reflux uropathy; E87.1 Hypo-osmolality and hyponatremia; K59.00 Constipation, unspecified; R33.8 Other retention of urine; I12.9 Hypertensive chronic kidney disease with stage 1 through stage 4 chronic kidney disease, or unspecified chronic kidney disease; N18.9 Chronic kidney disease, unspecified; Z79.2 Long term (current) use of antibiotics; Z79.899 Other long term (current) drug therapy
CPT/HCPCS: 36415; 71250; 74176; 80048; 80053; 80202; 81001; 83036; 83605; 84154; 84484; 85025; 85652; 86141; 87040; 96365; G0378; J2543

== ENCOUNTER 2025-08-07 05:29 | Emergency (ER) | payer OTHER, MEDICAID ==
[~2025-08-07] VITALS: Ht 170.2 cm; Wt 82.7 kg
[~2025-08-07 05:29] MED LIST changes: +FIN5T PO; +TAMS-35 PO
--- NOTE | 2025-08-07 06:25 | ED.PDOC ---
History of Present Illness HPI Comments 74-year-old male presents to the ER with caregiver and with prior medical history of hypertension, UTI and the chief complaint of urinary symptoms. Patient reports on having had his urologist being his Downing catheter due from it being clogged on Friday of 08/05/2025 and was not replaced. Patient is current ly complaining of urinary retention of the dysuria for the past two days associated with bladder pain. Patient notes on last time for urination was yesterday as well as the Downing catheter being placed in April. Denies any other symptoms at this time. Denies chills, fever, N/V/D, SOB, CP. No other associated symptoms, modifiers, recent injuries or sick contacts present at this time. Chief Complaint: Urinary Time Seen by MD: 06:20 Primary Care Provider: DR. HANCOCK Reviewed Notes: Nurses Notes, Medications, Allergies Allergies: Coded Allergies: NO KNOWN ALLERGIES (Unverified , 06/11/12) Home Meds Active Scripts Tamsulosin Hcl (Flomax) 0.4 Mg Cap, 0.4 MG PO QPM for 30 Days, #30 CAP Prov:BAILEY LOPEZ RESIDENT 04/13/25 Finasteride (Finasteride) 5 Mg Tab, 5 MG PO DAILY for 30 Days, #30 TAB Prov:BAILEY LOPEZ RESIDENT 04/13/25 Loratadine (Claritin) 10 Mg Tab, 1 TAB PO DAILY for 10 Days, #10 TAB 2 Refills Prov:SANJIV AMIN DO 09/07/22 Amoxicillin & Pot Clavulanate (Amoxicillin/Potassium Cla) 875 Mg Tab, 875 MG PO BID for 10 Days, #20 TAB Prov:SANJIV AMIN DO 09/07/22 Information Source: Patient, Spouse (Caregiver) Mode of Arrival: Ambulatory Severity: Moderate Timing: Hours Duration: Since onset, Hours Prehospital treatment: None Past Medical History PAST MEDICAL HISTORY: HTN, UTI'S Surgical History: Denies all surgeries Family History Family History: Reviewed,noncontributory to illness, Unknown Social History Smoker: Non-Smoker Alcohol: Occasionally Drugs: Denies Drug Use Lives In: Home Constitutional: denies: chills, diaphoresis, fatigue, fever, malaise, sweats, weakness, others EENTM: denies: blurred vision, double vision, ear bleeding, ear discharge, ear drainage, ear pain, ear ringing, eye pain, eye redness, hearing loss, mouth pain, mouth swelling, nasal discharge, nose bleeding, nose congestion, nose pain, photophobia, tearing, throat pain, throat swelling, voice changes, others Respiratory: denies: cough, hemoptysis, orthopnea, SOB at rest, shortness of breath, SOB with excertion, stridor, wheezing, others Cardiovascular: denies: chest pain, dizzy spells, diaphoresis, Dyspnea on exertion, edema, irregular heart beat, left arm pain, lightheadedness, palpitations, PND, syncope, others Gastrointestinal: denies: abdomen distended, abdominal pain, blood streaked bowels, constipated, diarrhea, dysphagia, difficulty swallowing, hematemesis, melena, nausea, poor appetite, poor fluid intake, rectal bleeding, rectal pain, vomiting, others Genitourinary: reports: dysuria, others (Urinary retention); denies: burning, flank pain, frequency, hematuria, incontinence, penile discharge, penile sore, pain, testicle pain, testicle swelling, urgency Neurological: denies: dizziness, fainting, headache, left sided numbness, left sided weakness, numbness, paresthesia, pre-existing deficit, right sided numbness, right sided weakness, seizure, speech problems, tingling, tremors, weakness, others Musculoskeletal: denies: back pain, gout, joint pain, joint swelling, muscle pain, muscle stiffness, neck pain, others Integumetry: denies: bruises, change in color, change in hair/nails, dryness, laceration, lesions, lumps, rash, wounds, others Allergic/Immunocompromised: denies: Difficulty Healing, Frequent Infections, Hives, Itching, others Hematologic/Lymphatic: denies: anemia, blood clots, easy bleeding, easy bruising, swollen glands, others Endocrine: denies: excessive hunger, excessive sweating, excessive thirst, excessive urination, flushing, intolerance to cold, intolerance to heat, unexplained weight gain, unexplained weight loss, others Psychiatric: denies: anxiety, bipolar disorder, depression, hopeless, panic disorder, schizophrenia, sleepless, suicidal, others All Other Systems: Reviewed and Negative Physical Exam Exam Comments Appears uncomfortable General Appearance: No Apparent Distress, Normal HEENT: Normal ENT Inspection, Pharynx Normal, TMs Normal Neck: Full Range of Motion, Non-Tender, Normal, Normal Inspection Respiratory: Chest Non-Tender, Lungs Clear, No Accessory Muscle Use, No Respiratory Distress, Normal Breath Sounds Cardiovascular: No Edema, No JVD, No Murmur, No Gallop, Normal Peripheral Pulses, Regular Rate/Rhythm Breast Exam: Deferred Gastrointestinal: No Organomegaly, Non Tender, No Pulsatile Mass, Normal Bowel Sounds, Soft Genitalia: Deferred Pelvic: Deferred Rectal: Deferred Extremities: No calf tenderness, Normal capillary refill, Normal inspection, Normal range of motion, Non-tender, No pedal edema Musculoskeletal : Apperance: Normal Neurologic: Alert, 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 Was a procedure done?: No Differential Dx Considerations may include: Acute urinary retention, UTI X-Ray, Labs, Meds, VS Vital Signs Date Time Temp Pulse Resp B/P (MAP) Pulse Ox O2 Delivery O2 Flow Rate FiO2 08/07/25 06:51 98.1 94 18 182/97 (125) 96 98.1 08/07/25 06:51 94 18 96 Room Air 08/07/25 05:32 98.1 106 16 200/111 96 98.1 Lab Test 08/07/25 05:36 Range/Units Urine Color Light-brown Yellow Urine Clarity Ex.turbid Clear Urine pH 6.0 5.0-9.0 Urine Specific [place] 1.019 1.001-1.035 Urine Protein 1+ H Negative Urine Ketones Negative Negative Urine Blood 3+ H Negative /uL Urine Nitrite Negative Negative Urine Bilirubin Negative Negative Urine Urobilinogen Normal Negative mg/dL Urine Leukocyte Esterase 3+ Negative /uL Urine RBC 2529 0 - 3 /hpf Urine Microscopic WBC 978 H 0-3 /HPF Urine Squamous Epithelial Cells None seen <5 /hpf Urine Bacteria Few H None Seen /hpf Urine Mucus Few None Seen Urine Glucose Normal Normal mg/dL Time of 1ST Reevaluation: 06:50 Reevaluation 1ST: Unchanged Patient Education/Counseling: Diagnosis, Treatment, Prognosis Family Education/Counseling: Diagnosis, Treatment, Prognosis SEPSIS Sepsis Screen Date sepsis recognized/suspect: Aug 07, 2025 Time Sepsis recognized/suspect: 0537 Recent Procedure: No On Antibiotic Therapy: Yes Respiratory Rate >20: No Heart Rate >90: Yes Temp<36 C (96.8 F) or >38.3 C: No SBP <90 or MAP <65 mmHG: No New Acute Mental Status Change: No Is the patient on CPAP, BIPAP,: No Physician Orders Insert/Manage Urinary Catheter QSHIFT (08/07/25 05:38) Vital Signs Date Time Temp Pulse Resp B/P (MAP) Pulse Ox O2 Delivery O2 Flow Rate FiO2 08/07/25 06:51 98.1 94 18 182/97 (125) 96 98.1 08/07/25 06:51 94 18 96 Room Air 08/07/25 05:32 98.1 106 16 200/111 96 98.1 Departure 1 Departure Time of Disposition: 07:05 (Patient with a acute urinary retention. Replace the patient's Downing. Patient had ample urine are some white cells. We will empirically cover patient with antibiotics and discharge patient home) Impression: Primary Impression: Acute urinary retention Additional Impression: Catheter-associated urinary tract infection Disposition: 01 HOME / SELF CARE / HOMELESS Condition: Stable Additional Instructions: Your catheter was replaced. The with a lot of white cells in your urine. You were given antibiotics as a precaution. You should follow up with the urologist. e-Prescriptions Sulfamethoxazole W/Trimethopri (Bactrim Ds Tablet) 1 Tab Tb 1 TAB PO BID for 5 Days, #10 TAB Prov: NATY GUERRA MD 08/07/25 Discharged With: Self Critical Care Note Critical Care Time?: No Stability Stability form required: No I personally scribed for NATY GUERRA MD ([email or web address]) on 08/07/25 at 06:25. Electronically submitted by Andrey Villeda ([email or web address]). NATY GUERRA MD Aug 07, 2025 06:25
[2025-08-07 06:42] LABS: Urine Protein, UAD 1+ (Negative)
[2025-08-07 06:51] VITALS: BP 182/97; PULSE 94; RESP 18; TEMP 98.1; O2SAT 96
[2025-08-07] MEDS ORDERED: BACDST PO (07:06)
== END 2025-08-07 07:14 | disposition home or self-care (01) ==
LOC: ER 05:29
DX: T83.518A Infection and inflammatory reaction due to other urinary catheter, initial encounter (principal); N39.0 Urinary tract infection, site not specified; F10.90 Alcohol use, unspecified, uncomplicated; I10 Essential (primary) hypertension; Z87.440 Personal history of urinary (tract) infections; Z79.899 Other long term (current) drug therapy; Y84.8 Other medical procedures as the cause of abnormal reaction of the patient, or of later complication, without mention of misadventure at the time of the procedure; Y92.89 Other specified places as the place of occurrence of the external cause
CPT/HCPCS: 51702; 81001; 99284; A4315